=== PATIENT | male | born 1945 | race Hispanic/Latino ===

== ENCOUNTER 2019-03-14 14:19 | Outpatient (CLI) | payer MEDICARE, BC ==
[2019-03-14] MEDS ORDERED: Iopamidol 370 76% 100 ML VIAL ONE (14:34)
[2019-03-14 14:35] LABS: Estimated GFR-MDRD - POC Greater than 90
--- NOTE | 2019-03-14 16:05 | CT ---
CT ABDOMEN AND PELVIS WITH AND WITHOUT CONTRAST: 03/14/19 Axial tomograms obtained pre and post IV contrast with postcontrast images performed in a portal veno us and delayed venous phase. INDICATIONS: Hematuria. COMPARISON: Comparison made to CT abdomen and pelvis dated 04/30/16. The previous exam revealed a large retroperitoneal hematoma with intra-abdominal hemorrhage and right effusion. FINDINGS: The lung bases appear clear today. Mild chronic lung parenchymal change. Liver, spleen and pancreas unremarkable. The gallbladder is mildly distended and there is evidence of mild pericholecystic edema. Consider fur ther evaluation with gallbladder ultrasound. The pancreas is atrophic with scattered punctate pancreatic calcifications. Mild dilatation of the pa ncreatic duct in the body and tail of the pancreas. Findings suggest chronic pancreatic change. Adrenal glands appear normal. Kidneys show no evidence of hydronephrosis. There is no evidence of urinary tract calculus. Ureters a re normal caliber. The urinary bladder is mildly distended. Minimal bladder wall prominence. The prostate is mildly enla rged and does indent the floor of the bladder. Aorta is normal caliber with mild atherosclerotic calcification. Small bowel loops appear normal. Nonspecific mural thickening in the right colon. Left colon is nondistended and poorly evaluated. Aorta shows atherosclerotic calcification and normal caliber. Images through the pelvis reveal a low density mass in the right pelvis measuring 4.0 x 2.4 cm in th e axial plane. This does mildly impinge on the urinary bladder from the right. This has the appearanc e of focal adenopathy. No other mass or adenopathy identified. The osseous structures are unremarkabl e. IMPRESSION: 1. The gallbladder is mildly distended and there is suggestion of pericholecystic edema. Recomme nd clinical correlation and consider further evaluation with gallbladder ultrasound. No evidence of u rinary duct dilatation. 2. There is a low density mass in the right pelvis indenting the urinary bladder on the right co nsistent with focal adenopathy. 3. Kidneys and urinary tract otherwise unremarkable. Mild prostatic hypertrophy is noted. POS: [facility]
== END 2019-03-14 14:20 | disposition home or self-care (01) ==
LOC: BICCT 14:19
PROVIDERS: ATTEND Urology
DX: K66.1 Hemoperitoneum (principal); N52.9 Male erectile dysfunction, unspecified; N40.0 Benign prostatic hyperplasia without lower urinary tract symptoms; K82.8 Other specified diseases of gallbladder; R19.00 Intra-abdominal and pelvic swelling, mass and lump, unspecified site
CPT/HCPCS: 74178; 82565; Q9967

== ENCOUNTER 2022-05-15 10:26 | Emergency (ER) | payer MEDICARE, BC ==
[2022-05-15 10:58] LABS: #Eosinphils 0.1 thou/uL (0.0-0.7); #Lymphocytes 1.7 thou/uL (1.20-3.40); #Monocytes 0.6 thou/uL (0.11-0.59); #Neutrophils 5.9 thou/uL (1.40-6.50); %Basophils 0.4 % (0.0-1.0); %Eosinophils 1.2 % (0.0-10.0); %Lymphocytes 20.1 % (21.0-51.0); %Monocytes 7.4 % (0.0-10.0); Hemoglobin 17.8 g/dL (14.0-18.0); Mean Corpuscular HGB CONC 35.4 g/dL (32.0-36.0); Mean Corpuscular Hemoglobin 33.4 pg (27.0-31.0); Mean Corpuscular Volume 94.6 fl (78.0-98.0); Mean Platelet Volume 10.7 fL (7.4-10.4); Platelet Count 127 10x3/uL (130-400); RBC Distribution Width 13.1 % (11.5-14.5); Red Blood Cell (RBC) Count 5.33 mill/uL (4.70-6.10); White Blood Cell (WBC) Count 8.3 10x3/uL (4.8-10.8)
[2022-05-15 11:18] LABS: ALT (SGPT) 35 U/L (8-55); AST (SGOT) 26 U/L (5-34); Albumin 3.9 g/dL (3.4-4.8); Alkaline Phosphatase 61 U/L (40-110); Anion Gap 15 mmol/L (10-20); BUN (Urea Nitrogen) 19 mg/dL (8.4-25.7); Bilirubin, Total 0.7 mg/dL (0.2-1.2); Calc. Creatinine Clearance 0 mL/min (70-130); Carbon Dioxide 21 mmol/L (23-31); Chloride 103 mmol/L (98-107); Estimated GFR 90; Globulin 3.2 g/dL (2.4-3.5); Glucose 162 mg/dL (83-110); Lipase 15 U/L (8-78); Protein, Total 7.1 g/dL (5.8-8.1); Sodium 135 mmol/L (136-145)
[2022-05-15 11:25] LABS: INR-International Normal Ratio 1.1; PTT 30.7 sec (22.9-36.1); Prothrombin Time 14.5 sec (12.0-14.7)
[2022-05-15 11:32] LABS: Digoxin 1.77 ng/mL (0.8-2.0)
[2022-05-15] MEDS ORDERED: Aspirin Chewable 81 MG TAB ONE (12:35)
[2022-05-15] MEDS ORDERED: Acetaminophen 500 MG TAB ONE (12:35)
== END 2022-05-15 14:53 | disposition short-term general hospital (02) ==
LOC: ERS 10:26
DX: R55 Syncope and collapse (principal); E11.9 Type 2 diabetes mellitus without complications; Z79.4 Long term (current) use of insulin
CPT/HCPCS: 36415; 36416; 70450; 70486; 71045; 72125; 80053; 80162; 83690; 84484; 85025; 85610; 85730; 93005